=== PATIENT | male | born 1960 | race Caucasian/White ===

== ENCOUNTER 2017-07-26 21:27 | Emergency (ER) | payer OTHER ==
[~2017-07-26] VITALS: Ht 177.8 cm; Wt 90.7 kg
--- NOTE | 2017-07-26 21:34 | ED.ADGEN ---
Past History Past Medical History: Alcoholism, Diabetes Adult General Chief Complaint Chief Complaint " I don't know...'" maybe I drank too much.. and did not eat right.." HPI HPI Patient is a 56 year old male who presents with presents for mental status change. [facility] and glucose [facility] 30. [facility] because of advised could take a pt. with that low of glucose. Pt. currently at OR for of alcohol / drug abuse Tx. program . Pt. given glucose by paramedics. Pt. has hx of DM and is on Insulin pump. Pt. did drink alcohol to day. Pt. repeat levels 60 on arrival and required repeat D50W. Pt. initially acted post ictal and was slow to respond. Pt. mental cleared after repeat dosage of D50W. Pt able to move all extremities on request. Pt. denies falls or injury. Mental cleared with second dose of glucose. Review of Systems Review of Systems Constitutional: Denies fever or chills [] Eyes: Denies change in visual acuity, redness, or eye pain [] HENT: Denies nasal congestion or sore throat [] Respiratory: Denies cough or shortness of breath [] Cardiovascular: No additional information not addressed in HPI [] GI: Denies abdominal pain, nausea, vomiting, bloody stools or diarrhea [] : Denies dysuria or hematuria [] Musculoskeletal: Denies back pain or joint pain [] Integument: Denies rash or skin lesions [] Neurologic: Denies headache, focal weakness or sensory changes [] Endocrine: Denies polyuria or polydipsia [] All other systems were reviewed and found to be within normal limits, except as documented in this note. Family History Family History Non-contributory Current Medications Current Medications Current Medications Medications (Trade) Dose Ordered Sig/Rory Start Time Stop Time Status Last Admin Dose Admin Dextrose 25 gm STK-MED ONCE 07/26/17 21:41 07/26/17 21:42 DC Multivitamins/ Minerals 10 ml/ Folic Acid 1 mg/ Thiamine HCl 100 mg/Dextrose/ Lactated Ringer's 1,011.2 ml @ 0 mls/hr 1X ONCE 07/26/17 22:00 07/26/17 22:01 DC 07/26/17 22:07 1,000 MLS/HR See Nursing for home meds Allergies Allergies Allergies Coded Allergies Type Severity Reaction Last Updated Verified lisinopril Allergy Unknown 07/26/17 Yes Physical Exam Physical Exam Constitutional: no acute distress, non-toxic appearance. [] HENT: Normocephalic, atraumatic, bilateral external ears normal, oropharynx moist, no oral exudates, nose normal. Scars Eyes: PERRLA, EOMI, conjunctiva normal, no discharge. [] Neck: Normal range of motion, no tenderness, supple, no stridor. [] Cardiovascular:Heart rate regular rhythm, no murmur [] Lungs & Thorax: Bilateral breath sounds equal at apex with scattered wheezes auscultation [] Abdomen: Bowel sounds normal, soft, no tenderness, no masses, no pulsatile masses. [] Skin: Warm, dry, no erythema, no rash. [] Back: No tenderness, no CVA tenderness. [] Extremities: No tenderness, no cyanosis, no clubbing, ROM intact, no edema. [] Neurologic: Alert and oriented X 3, normal motor function, normal sensory function, no focal deficits noted. DTR + 2, move all ext. on request. Psychologic: Affect depressed, judgement normal, mood normal. [] Current Patient Data Lab Results Laboratory Tests Test 07/26/17 21:33 07/26/17 21:51 07/26/17 22:02 07/26/17 22:26 Glucose (Fingerstick) 64 mg/dL (70-99) L 287 mg/dL (70-99) H 202 mg/dL (70-99) H White Blood Count 5.9 x10^3/uL (4.0-11.0) Red Blood Count 3.95 x10^6/uL (4.30-5.70) L Hemoglobin 12.8 g/dL (13.0-17.5) L Hematocrit 37.3 % (39.0-53.0) L Mean Corpuscular Volume 95 fL (79-100) Mean Corpuscular Hemoglobin 33 pg (25-35) Mean Corpuscular Hemoglobin Concent 34 g/dL (31-37) Red Cell Distribution Width 13.2 % (11.5-14.5) Platelet Count 217 x10^3/uL (140-400) Neutrophils (%) (Auto) 71 % (31-73) Lymphocytes (%) (Auto) 17 % (24-48) L Monocytes (%) (Auto) 9 % (0-9) Eosinophils (%) (Auto) 1 % (0-3) Basophils (%) (Auto) 1 % (0-3) Neutrophils # (Auto) 4.2 x10^3uL (1.8-7.7) Lymphocytes # (Auto) 1.0 x10^3/uL (1.0-4.8) Monocytes # (Auto) 0.5 x10^3/uL (0.0-1.1) Eosinophils # (Auto) 0.1 x10^3/uL (0.0-0.7) Basophils # (Auto) 0.1 x10^3/uL (0.0-0.2) Prothrombin Time 10.2 SEC (9.4-11.4) Prothrombin Time INR 1.0 (0.9-1.1) PTT 24 SEC (23-33) Sodium Level 136 mmol/L (136-145) Potassium Level 3.7 mmol/L (3.5-5.1) Chloride Level 98 mmol/L (98-107) Carbon Dioxide Level 29 mmol/L (21-32) Anion Gap 9 (6-14) Blood Urea Nitrogen 11 mg/dL (8-26) Creatinine 0.9 mg/dL (0.7-1.3) Estimated GFR (Cockcroft-Gault) 87.6 Glucose Level 258 mg/dL (70-99) H Calcium Level 8.3 mg/dL (8.5-10.1) L Magnesium Level 1.8 mg/dL (1.8-2.4) Total Bilirubin 0.3 mg/dL (0.2-1.0) Direct Bilirubin 0.1 mg/dL (0.0-0.2) Aspartate Amino Transferase (AST) 21 U/L (15-37) Alanine Aminotransferase (ALT) 29 U/L (16-63) Alkaline Phosphatase 146 U/L (46-116) H Troponin I Quantitative 0.031 ng/mL (0-0.055) Total Protein 7.2 g/dL (6.4-8.2) Albumin 3.3 g/dL (3.4-5.0) L Lipase 74 U/L (73-393) Ethyl Alcohol Level 299 mg/dL (0-10) H Test 07/26/17 22:55 07/26/17 23:00 07/26/17 23:28 07/26/17 23:51 Glucose (Fingerstick) 211 mg/dL (70-99) H 250 mg/dL (70-99) H 260 mg/dL (70-99) H Urine Collection Type Unknown Urine Color Straw Urine Clarity Clear Urine pH 5.0 Urine Specific [place] <=1.005 Urine Protein Neg (NEG-TRACE) Urine Glucose (UA) 500 mg/dL (NEG) Urine Ketones (Stick) Neg mg/dL (NEG) Urine Blood Neg (NEG) Urine Nitrite Neg (NEG) Urine Bilirubin Neg (NEG) Urine Urobilinogen Dipstick 0.2 mg/dL (0.2 mg/dL) Urine Leukocyte Esterase Neg (NEG) Urine RBC Occ /HPF (0-2) Urine WBC 0 /HPF (0-4) Urine Squamous Epithelial Cells Occ /LPF Urine Transitional Epithelial Cells Occ /LPF Urine Bacteria Few /HPF (0-FEW) Urine Mucus Slight /LPF Urine Opiates Screen Neg (NEG) Urine Methadone Screen Neg (NEG) Urine Barbiturates Neg (NEG) Urine Phencyclidine Screen Neg (NEG) Urine Amphetamine/Methamphetamine Neg (NEG) Urine Benzodiazepines Screen Neg (NEG) Urine Cocaine Screen Neg (NEG) Urine Cannabinoids Screen Neg (NEG) Urine Ethyl Alcohol Pos (NEG) Test 07/26/17 23:59 07/27/17 00:29 Ammonia 12 mcmol/L (11-34) Glucose (Fingerstick) 274 mg/dL (70-99) H EKG EKG My interpretation of EKG shows a sinus rhythm at 70 bpm.[] Radiology/Procedures Radiology/Procedures My interpretation of CT shows[] no shift, mass, edema, bleed, fracture . My interpretation chest x-ray shows no acute cardiopulmonary findings Course & Med Decision Making Course & Med Decision Making Pertinent Labs and Imaging studies reviewed. (See chart for details). Patient encouraged to attend alcohol rehabilitation classes. Patient encouraged to reduce alcohol intake. Patient follow-up primary care. Patient encouraged to eat regular meals. Patient return if any concerns. [] Final Impression Final Impression 1. Hypoglycemia 2. Mental Status Change 3. DM- ( has Insulin pump)[] 4. Alcohol abuse 5. Anemia Problems: Dragon Disclaimer Dragon Disclaimer This electronic medical record was generated, in whole or in part, using a voice recognition dictation system. ELISSA TERRY MD Jul 26, 2017 21:34
[2017-07-26] MEDS ORDERED: DEXTROSE 50% 25 GM / 50ML DISP.SYRIN. IV ONE ×2 (21:41→21:45)
[2017-07-26] MEDS ORDERED: MVI, ADULT NO.4 WITH VIT K 10 ML, FOLIC ACID 1 MG, THIAMINE 100 MG in IV DEXTROSE 5%-LA... IV ONE ×4 (22:00)
[2017-07-26 22:27] LABS: BASO # 0.1 x10^3/uL (0.0-0.2); BASO % 1 % (0-3); EOS # 0.1 x10^3/uL (0.0-0.7); EOS % 1 % (0-3); HEMATOCRIT 37.3 % (39.0-53.0); HEMOGLOBIN 12.8 g/dL (13.0-17.5); LYMPH % 17 % (24-48); MEAN CORPUSCULAR HEMOGLOBIN 33 pg (25-35); MEAN CORPUSCULAR HGB CONC 34 g/dL (31-37); MEAN CORPUSCULAR VOLUME 95 fL (79-100); MONO # 0.5 x10^3/uL (0.0-1.1); MONO % 9 % (0-9); NEUT # 4.2 x10^3uL (1.8-7.7); NEUT % 71 % (31-73); PLATELET COUNT 217 x10^3/uL (140-400); RED BLOOD COUNT 3.95 x10^6/uL (4.30-5.70); RED CELL DISTRIBUTION WIDTH 13.2 % (11.5-14.5); WHITE BLOOD COUNT 5.9 x10^3/uL (4.0-11.0)
[2017-07-26 22:33] LABS: ALBUMIN 3.3 g/dL (3.4-5.0); CALCIUM 8.3 mg/dL (8.5-10.1); CREATININE 0.9 mg/dL (0.7-1.3); DIRECT BILIRUBIN 0.1 mg/dL (0.0-0.2); GFR 87.6; MAGNESIUM 1.8 mg/dL (1.8-2.4); POTASSIUM 3.7 mmol/L (3.5-5.1); TOTAL BILIRUBIN 0.3 mg/dL (0.2-1.0); TOTAL PROTEIN 7.2 g/dL (6.4-8.2)
--- NOTE | 2017-07-26 23:29 | EKG ---
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
[2017-07-26 23:37] LABS: BARBITURATES NEG (NEG); BENZODIAZEPINES NEG (NEG); CANNABINOIDS NEG (NEG); COCAINE NEG (NEG); METHADONE NEG (NEG); OPIATES NEG (NEG); PHENCYCLIDINE NEG (NEG)
--- NOTE | 2017-07-26 23:38 | RAD ---
CT HEAD WO CONTRAST Clinical indications: Mental status change today. COMPARISON: None available. Technique: Noncontrast axial cross sectional scanning of the head was performed. PQRS compliance Statement One or more of the following individualized dose reduction techniques were utilized for this study: 1. Automated exposure control 2. Adjustment of the mA and/or kV according to patient size 3. Use of iterative reconstruction technique Findings: No acute intracranial hemorrhage or midline shift or mass-effect or hydrocephalus or extra-axial fluid collection is seen. No focal hypodense area or sulci effacement is seen to indicate an acute infarct or edema radiographically. No skull fracture or pneumocephalus is seen. No opacification of the mastoid sinuses or the paranasal sinuses is seen. The maxillary sinuses are not completely seen in this study. Impression: No acute intracranial abnormality is seen. Electronically signed by: Jesús Lombardo MD (07/26/2017 11:35 PM) [facility]
[2017-07-26 23:40] LABS: BACTERIA,URINE FEW /HPF (0-FEW); BILIRUBIN,URINE NEG (NEG); CLARITY,URINE CLEAR; COLOR,URINE STRAW; GLUCOSE,URINE 500 mg/dL (NEG); NITRITE,URINE NEG (NEG); RBC,URINE OCC /HPF (0-2); SQUAMOUS EPITHELIAL CELL,UR OCC /LPF; UROBILINOGEN,URINE 0.2 mg/dL (0.2 mg/dL); WBC,URINE 0 /HPF (0-4)
[2017-07-26 23:56] LABS: AMPHETAMINE/METHAMPHETAMINE NEG (NEG)
[2017-07-27 01:20] VITALS: BP 121/74
--- NOTE | 2017-07-27 08:01 | RAD ---
Indication: Mental status change. Technique: AP upright portable chest radiograph was obtained. No comparison is available. Findings: The lungs are clear. Cardiac silhouette is upper limits of normal, although likely accentuated with portable technique. There is no heart failure. Costophrenic angles are clear. Bony structures are intact. Impression: No acute thoracic findings.
== END 2017-07-27 01:20 | disposition home or self-care (01) ==
LOC: ER 21:27
DX: E11.649 Type 2 diabetes mellitus with hypoglycemia without coma (principal); R41.82 Altered mental status, unspecified; F10.10 Alcohol abuse, uncomplicated; D64.9 Anemia, unspecified; Z96.41 Presence of insulin pump (external) (internal); Z79.4 Long term (current) use of insulin; Z88.8 Allergy status to other drugs, medicaments and biological substances
CPT/HCPCS: 36415; 70450; 71045; 80048; 80076; 80307; 81001; 82140; 82947; 83690; 83735; 84443; 84484; 85025; 85610; 85730; 93005; 96365; 96375; G0480; 99285-25; G0479